=== PATIENT | male | born 1940 | race Caucasian/White ===

== ENCOUNTER 2019-07-26 14:11 | Inpatient (IN) | payer OTHER ==
[2019-07-26] MEDS ORDERED: ONDANSETRON 4 MG/2 ML VIAL ONE (14:19)
[2019-07-26] MEDS ORDERED: ASPIRIN 81 MG CHEWABLE TABLET ONE ×2 (14:19→15:20)
[2019-07-26] MEDS ORDERED: MORPHINE 4 MG/ML SYR ONE (14:26)
[2019-07-26] MEDS ORDERED: HEPA 1000U/500MLS 2,000 UNIT/1,000 ML BAG IV ONE (14:34)
[2019-07-26] MEDS ORDERED: LIDOCAINE 1% MPF 30 ML VIAL ONE (14:35)
--- NOTE | 2019-07-26 14:41 | EDPHYS ---
Physician Documentation [facility] Name: Lamin Damian Jr Age: 79 yrs Sex: Male : 1940 Arrival Date: 07/26/2019 Time: 14:12 Bed 2 Private MD: ED Physician David Diaz HPI: 07/26 14:36 This 79 yrs old Male presents to ER via Ambulatory with complaints of Chest Pain, L Arm ma2 Pain. 14:36 The patient or guardian reports chest pain that is located primarily in the substernal ma2 area. Onset: suddenly, 0.5 hour(s) ago. Associated signs and symptoms: Pertinent negatives: cough, dizziness, lower extremity swelling. Severity of pain: At its worst the pain was severe in the emergency department the pain is unchanged. The patient has not experienced similar symptoms in the past. Historical: - Allergies: 14:26 No Known Allergies; sg - Home Meds: 14:32 two prostate pills [Active]; breathing treatment [Active]; sg - PSHx: 14:26 Appendectomy; sg - Immunization history:: Adult Immunizations up to date. - Social history:: Smoking status: Patient reports use of chewing tobacco. Patient uses alcohol, occasionally. Patient/guardian denies using street drugs, IV drugs, Patient/guardian denies using The patient lives with family. - Ebola Screening: : Patient negative for fever greater than or equal to 101.5 degrees Fahrenheit, and additional compatible Ebola Virus Disease symptoms Patient denies exposure to infectious person Patient denies travel to an Ebola-affected area in the 21 days before illness onset No symptoms or risks identified at this time. - Family history:: not pertinent. ROS: 14:36 Respiratory: Negative for shortness of breath, cough, wheezing, and pleuritic chest ma2 pain, Abdomen/GI: Negative for abdominal pain, nausea, diarrhea, and constipation, MS/Extremity: Negative for injury and deformity. 14:36 All other systems are negative. Exam: 14:36 ENT: Nares patent. No nasal discharge, no septal abnormalities noted. Tympanic ma2 membranes are normal and external auditory canals are clear. Oropharynx with no redness, swelling, or masses, exudates, or evidence of obstruction, uvula midline. Mucous membranes moist. Neck: Trachea midline, no thyromegaly or masses palpated, and no cervical lymphadenopathy. Supple, full range of motion without nuchal rigidity, or vertebral point tenderness. No Meningismus. Chest/axilla: Normal chest wall appearance and motion. Nontender with no deformity. No lesions are appreciated. Cardiovascular: Regular rate and rhythm with a normal S1 and S2. No gallops, murmurs, or rubs. Normal PMI, no JVD. No pulse deficits. Respiratory: Lungs have equal breath sounds bilaterally, clear to auscultation and percussion. No rales, rhonchi or wheezes noted. No increased work of breathing, no retractions or nasal flaring. MS/ Extremity: Pulses equal, no cyanosis. Neurovascular intact. Full, normal range of motion. Neuro: Awake and alert, GCS 15, oriented to person, place, time, and situation. Cranial nerves II-XII grossly intact. Motor strength 5/5 in all extremities. Sensory grossly intact. Cerebellar exam normal. Normal gait. 14:36 Constitutional: The patient appears diaphoretic, in obvious distress. Vital Signs: 14:28 BP 156 / 91; Pulse 66 MON; Resp 21; Temp 97.3; Pulse Ox 96% on R/A; Weight 108.86 kg sg (R); Height 6 ft. 0 in. (182.88 cm); Pain 8/10; 14:28 Body Mass Index 32.55 (108.86 kg, 182.88 cm) MDM: 14:16 Patient medically screened. tw4 14:36 Differential diagnosis: abnormal EKG, acute myocardial infarction, acute pericarditis, ma2 unstable angina. HEART Score: ECG: Significant ST-deviation (2). The patient was given aspirin in the Emergency Department. BLADIMIR Risk Score: 1 - patient's age is greater or equal to 65 years, 1 - ST deviation >0.5mm. Data reviewed: vital signs, nurses notes. Counseling: I had a detailed discussion with the patient and/or guardian regarding: the historical points, exam findings, and any diagnostic results supporting the discharge/admit diagnosis, the presence of at least one elevated blood pressure reading (>120/80) during this emergency department visit, discussed with dr. rhoades, stemi activated, given asa and patient. 07/26 14:30 Order name: Basic Metabolic Panel 07/26 14:30 Order name: CBC with Diff 07/26 14:30 Order name: LFT's 07/26 14:30 Order name: Magnesium 07/26 14:30 Order name: NT PRO-BNP 07/26 14:30 Order name: PT-INR 07/26 14:30 Order name: Troponin (emerg Dept Use Only) 07/26 14:32 Order name: Basic Metabolic Panel 07/26 14:32 Order name: CBC with Diff 07/26 14:32 Order name: LFT's 07/26 14:32 Order name: Magnesium 07/26 14:32 Order name: NT PRO-BNP 07/26 14:32 Order name: PT-INR 07/26 14:32 Order name: Troponin (emerg Dept Use Only) 07/26 14:30 Order name: XRAY Chest (1 view) 07/26 14:30 Order name: EKG; Complete Time: 14:32 07/26 14:30 Order name: Cardiac monitoring; Complete Time: 14:31 07/26 14:30 Order name: EKG - Nurse/Tech; Complete Time: 14:30 07/26 14:30 Order name: IV Saline Lock; Complete Time: 14:31 07/26 14:30 Order name: Labs collected and sent; Complete Time: 14:31 07/26 14:30 Order name: O2 Per Protocol; Complete Time: 14:31 07/26 14:30 Order name: O2 Sat Monitoring; Complete Time: 14:31 07/26 14:32 Order name: XRAY Chest (1 view) 07/26 14:32 Order name: Cardiac monitoring; Complete Time: 14:35 07/26 14:32 Order name: EKG - Nurse/Tech; Complete Time: 14:41 07/26 14:32 Order name: IV Saline Lock; Complete Time: 14:35 07/26 14:32 Order name: Labs collected and sent; Complete Time: 14:35 07/26 14:32 Order name: O2 Per Protocol; Complete Time: 14:35 07/26 14:32 Order name: O2 Sat Monitoring; Complete Time: 14:36 tw4 Administered Medications: 14:18 Drug: Zofran 4 mg Route: IVP; Site: right forearm; sg 14:41 Follow up: Response: No adverse reaction sv 14:26 Drug: morphine 4 mg Route: IVP; Site: right forearm; 14:41 Follow up: Response: No adverse reaction; No change in condition; RASS: Agitated (+2) sv 14:45 Drug: transfer to senior label specialist 1 application Route: IV; Rate: calculated rate; Site: Other; Disposition: 14:46 Critical Care:. ma2 Disposition: 07/26/19 14:39 Hospitalization ordered by Harry Rhoades for Inpatient Admission. Preliminary diagnosis is ST elevation (STEMI) myocardial infarction involving other coronary artery of inferior wall. - Bed requested for Intensive Care Unit. - Status is Inpatient Admission. sv - Condition is Critical. - Problem is new. - Symptoms are unchanged. UTI on Admission? No Critical care time excluding procedures: 14:46 Critical care time: Bedside Care: 30 minutes, Consultation: 10 minutes, Family ma2 Intervention: 5 minutes. Total time: 45 minutes Signatures: Dispatcher [employer] Anna Valdivia RN RN Franky Cole RN RN David Diaz MD MD ma2 Iván Anderson MD MD tw4 Corrections: (The following items were deleted from the chart) 14:44 14:39 Hospitalization Ordered by Harry Rhoades MD for Inpatient Admission. Preliminary sv diagnosis is ST elevation (STEMI) myocardial infarction involving other coronary artery of inferior wall. Bed requested for Intensive Care Unit. Status is Inpatient Admission. Condition is Critical. Problem is new. Symptoms are unchanged. UTI on Admission? No. ma2
--- NOTE | 2019-07-26 14:41 | ER ---
Nurse's Notes [facility] Name: Lamin Damian Jr Age: 79 yrs Sex: Male : 1940 Arrival Date: 07/26/2019 Time: 14:12 Bed 2 Private MD: Diagnosis: ST elevation (STEMI) myocardial infarction involving other coronary artery of inferior wall Presentation: 07/26 14:25 Acuity: SMOOTH 1 sg 14:27 Presenting complaint: Patient states: chest pain that radiates to the left arm about 30 sg mins MEDIA CONSULTANT, reports N/V that started at the same time, pt states that he has had no problems with his heart in the past. Transition of care: patient was not received from another setting of care. Onset of symptoms was July 26, 2019. Risk Assessment: Do you want to hurt yourself or someone else? Patient reports no desire to harm self or others. Initial Sepsis Screen: Does the patient meet any 2 criteria? RR > 20 per min. Does the patient have a suspected source of infection? No. Patient's initial sepsis screen is negative. Care prior to arrival: None. 14:27 Method Of Arrival: Ambulatory sg Historical: - Allergies: 14:26 No Known Allergies; sg - Home Meds: 14:32 two prostate pills [Active]; breathing treatment [Active]; sg - PSHx: 14:26 Appendectomy; sg - Immunization history:: Adult Immunizations up to date. - Social history:: Smoking status: Patient reports use of chewing tobacco. Patient uses alcohol, occasionally. Patient/guardian denies using street drugs, IV drugs, Patient/guardian denies using The patient lives with family. - Ebola Screening: : Patient negative for fever greater than or equal to 101.5 degrees Fahrenheit, and additional compatible Ebola Virus Disease symptoms Patient denies exposure to infectious person Patient denies travel to an Ebola-affected area in the 21 days before illness onset No symptoms or risks identified at this time. - Family history:: not pertinent. Screenin:20 Abuse screen: Denies threats or abuse. Denies injuries from another. Nutritional sg screening: No deficits noted. Tuberculosis screening: No symptoms or risk factors identified. Never had TB. Fall Risk None identified. Assessment: 14:20 General: Appears distressed, uncomfortable, well groomed, well developed, well sg nourished, Behavior is calm, cooperative, appropriate for age. Pain: Complains of pain in anterior aspect of left upper chest Pain radiates to left arm Quality of pain is described as aching. Neuro: Level of Consciousness is awake, alert, obeys commands, Oriented to person, place, time, Toolmaker are equal bilaterally Speech is normal, Cardiovascular: Heart tones S1 S2 present. Cardiovascular: Capillary refill is brisk in bilateral fingers Chest pain is described as diffuse, severe, quality is crushing, pressure, is located in anterior chest wall radiates to left arm(s). Respiratory: Airway is patent Respiratory effort is even, unlabored, Respiratory pattern is regular, symmetrical, Breath sounds are clear Denies cough. GI: Abdomen is round non-distended, Bowel sounds present X 4 quads. Reports nausea, vomiting. : No signs and/or symptoms were reported regarding the genitourinary system. EENT: No signs and/or symptoms were reported regarding the EENT system. Derm: Skin is intact, is healthy with good turgor, Skin is clammy, Skin is pale, Skin temperature is warm. Musculoskeletal: Circulation, motion, and sensation intact. Range of motion: intact in all extremities. 14:35 Reassessment: Dr Rhoades at the bedside. sv 14:35 Reassessment: Patient appears in no apparent distress at this time. at bedside at this time. Vital Signs: 14:28 BP 156 / 91; Pulse 66 MON; Resp 21; Temp 97.3; Pulse Ox 96% on R/A; Weight 108.86 kg (R); Height 6 ft. 0 in. (182.88 cm); Pain 8/10; 14:28 Body Mass Index 32.55 (108.86 kg, 182.88 cm) ED Course: 14:12 Patient arrived in ED. ds1 14:15 Patient has correct armband on for positive identification. Placed in gown. Bed in low sv position. Call light in reach. Side rails up X2. Adult w/ patient. venetian blind mechanic on. Pulse ox on. NIBP on. Head of bed elevated. 14:16 Iván Anderson MD is Attending Physician. tw4 14:20 Initial lab(s) drawn, by me, sent to lab. Inserted saline lock: 20 gauge in right sg forearm, using aseptic technique. Blood collected. Patient maintains SpO2 saturation greater than 95% on room air. O2 via pt placed to 4 lpm NC as per protocol. 14:22 Missed attempt(s): 20 gauge in left forearm. antecubital area. Bleeding controlled, sv band aid applied, catheter tip intact. 14:25 Franky Cole, RN is Primary Nurse. sg 14:25 Triage completed. sg 14:25 Arm band placed on. sg 14:25 Inserted saline lock: 20 gauge in left hand, using aseptic technique. ,using aseptic sv technique. done by Rossana ANTON. 14:39 Harry Rhoades MD is Hospitalizing Provider. ma 14:39 David Diaz MD is Attending Physician. ma 14:40 No provider procedures requiring assistance completed. Patient admitted, IV remains in sv place. intact. Administered Medications: 14:18 Drug: Zofran 4 mg Route: IVP; Site: right forearm; sg 14:41 Follow up: Response: No adverse reaction sv 14:26 Drug: morphine 4 mg Route: IVP; Site: right forearm; sg 14:41 Follow up: Response: No adverse reaction; No change in condition; RASS: Agitated (+2) sv 14:45 Drug: transfer to laborer vegetable farm 1 application Route: IV; Rate: calculated rate; Site: Other; Outcome: 14:39 Decision to Hospitalize by Provider. ma2 14:40 Admitted to Lens Mold Setter accompanied by nurse, accompanied by tech, family with patient, sv via stretcher, with oxygen, on monitor, with chart, Report called to Neida, at the bedside 14:40 critical 14:40 Instructed on the need for admit. 14:44 Patient left the ED. sv Signatures: Anna Potter RN RN Franky Cole, DESEAN ANTON Yenni Escobedo ds1 David Diaz MD MD ma2 Iván Anderson MD MD tw4
[2019-07-26 14:43] LABS: Absolute Lymphocytes (CBC) 1.4 K/uL (0.7-4.9); Basophils % 0.9 % (0-1.3); Hematocrit 53.2 % (39.6-49.0); Lymphocytes % 19.4 % (15.3-44.8); MPV 8.4 fL (7.6-11.3); RBC Red Blood Cell Count 5.98 M/uL (4.33-5.43)
--- NOTE | 2019-07-26 14:51 | EKG ---
Test Date: 2019-07-26 Test Time: 14:20:15 Senior Controls Engineer: SELENE MEASUREMENT RESULTS: Intervals: Rate: 57 NE: 164 QRSD: 100 QT: 386 QTc: 375 [place]: P: 45 NE: 164 QRS: 38 T: 77 INTERPRETIVE STATEMENTS: Sinus bradycardia ST elevation, consider anterolateral injury or acute infarct ST elevation, consider inferior injury or acute infarct ACUTE [place] Consider right ventricular involvement in acute inferior infarct Abnormal ECG No previous ECG available for comparison Electronically Signed On 07-26-19 14:51:05 STABLE HAND by Harry Rhoades
[2019-07-26 14:53] LABS: Protime INR 0.96
[2019-07-26] MEDS ORDERED: MIDAZOLAM HCL 2 MG/2 ML INJ ONE (14:54)
[2019-07-26] MEDS ORDERED: NA CHLORIDE 0.9% 500 ML ONE (14:54)
[2019-07-26] MEDS ORDERED: ATROPINE SULF 1 MG/10 ML SYR IV ONE (14:55)
[2019-07-26] MEDS ORDERED: NA CHLORIDE 0.9% 50 ML ONE (14:55)
[2019-07-26] MEDS ORDERED: FENTANYL CITR 100 MCG/2 ML ONE (14:55)
--- NOTE | 2019-07-26 15:04 | RAD REPORT ---
EXAM DESCRIPTION: Treasure Single View07/26/2019 2:56 pm CLINICAL HISTORY: Chest pain COMPARISON: none FINDINGS: Left base is hazy The right lung appears clear of acute infiltrate. The heart is normal size IMPRESSION: The left base is hazy. This could be secondary to overlying soft tissue or small pleural effusion.
[2019-07-26 15:05] LABS: ALT/SGPT 37 U/L (12-78); AST/SGOT 23 U/L (15-37); Albumin 3.8 g/dL (3.4-5.0); Alkaline Phosphatase 59 U/L (45-117); BUN Blood Urea Nitrogen 16 mg/dL (7-18); Bicarbonate 29 mmol/L (21-32); Bilirubin Direct 0.2 mg/dL (0-0.2); Bilirubin Total 0.7 mg/dL (0.2-1.0); Glucose Level 135 mg/dL (74-106); Magnesium 2.2 mg/dL (1.8-2.4); NT PRO-BNP 83 pg/mL (<450); Potassium 3.9 mmol/L (3.5-5.1); Protein, Total 7.3 g/dL (6.4-8.2); Sodium Level 141 mmol/L (136-145); Troponin (Emerg Dept Use Only) < 0.02 ng/mL (0.0-0.045)
[2019-07-26] MEDS ORDERED: PRASUGREL (EFFIENT) 10 MG TAB ONE (15:20)
[2019-07-26] MEDS ORDERED: METOPROLOL TARTRATE 5 MG/5 ML INJ IV ONE ×2 (15:23→16:10)
[2019-07-26] MEDS ORDERED: ZOLPIDEM TARTRATE 5 MG TABLET PO PRN (15:52)
[2019-07-26] MEDS ORDERED: ONDANSETRON 4 MG/2 ML VIAL IV PRN (15:52)
[2019-07-26] MEDS ORDERED: FENTANYL CITR 100 MCG/2 ML IV PRN (15:52)
[2019-07-26] MEDS ORDERED: HYDRALAZINE HCL 20 MG/ML VIAL ONE (16:10)
--- NOTE | 2019-07-26 16:19 | ECHO ---
HEIGHT: 6 ft 0 in WEIGHT: 240 lb 0 oz DATE OF STUDY: 07/26/[address]: Harry Rhoades MD 2-DIMENSIONAL: YES M.MODE: YES DOPPLER: YES COLOR FLOW: YES TDS: NO PORTABLE: NO DEFINITY: NO BUBBLE STUDY: NO DIAGNOSIS: NSTEMI CARDIAC HISTORY: CATHERIZATION: YES SURGERY: NO PROSTHETIC VALVE: NO PACEMAKER: NO MEASUREMENTS (cm) DIASTOLIC (NORMALS) SYSTOLIC (NORMALS) IVSd (0.6-1.2) LA Diam (1.9-4.0) LVEF 60-69% LVIDd (3.5-5.7) LVIDs (2.0-3.5) %FS % LVPWd (0.6-1.2) Ao Diam (2.0-3.7) 2 DIMENSIONAL ASSESSMENT: RIGHT ATRIUM: NORMAL LEFT ATRIUM: DILATED RIGHT VENTRICLE: NORMAL LEFT VENTRICLE: NORMAL TRICUSPID VALVE: NORMAL MITRAL VALVE: NORMAL PULMONIC VALVE: NORMAL AORTIC VALVE: SCLEROSIS PERICARDIAL EFFUSION: NONE AORTIC ROOT: NORMAL LEFT VENTRICULAR WALL MOTION: MILD INFERIOR HYPOKINESIS. DOPPLER/COLOR FLOW: NO AORTIC STENOSIS OR AORTIC REGURGITATION. MILD TRICUSPID REGURGITATION, ESTIMATED RIGHT VENTRICULAR SYSTOLIC PRESSURE 30mmHg (NORMAL). COMMENTS: NORMAL LEFT VENTRICULAR EJECTION FRACTION WITH WALL MOTION ABNORMALITY. DILATED LEFT ATRIUM. AORTIC SCLEROSIS WITH NO AORTIC STENOSIS OR REGURGITATION. MILD MITRAL AND MILDL TRICUSPID REGURGITATION. TECHNOLOGIST: GAIL ALVAREZ
--- NOTE | 2019-07-26 16:36 | EKG ---
Test Date: 2019-07-26 Test Time: 15:49:34 Senior Statistician: DORIE MEASUREMENT RESULTS: Intervals: Rate: 74 NH: 178 QRSD: 94 QT: 376 QTc: 417 [place]: P: 78 NH: 178 QRS: 14 T: 83 INTERPRETIVE STATEMENTS: Normal sinus rhythm Inferior infarct, possibly acute Lateral injury pattern ACUTE MS Consider right ventricular involvement in acute inferior infarct Abnormal ECG Compared to ECG 07/26/2019 14:20:15 Sinus bradycardia no longer present st depression is imporved Electronically Signed On 07-26-19 16:35:53 FLAP CURER by Harry Rhoades
[2019-07-26] MEDS ORDERED: ACETAMINOPHEN 325 MG TABLET PO PRN (17:46)
[2019-07-26] MEDS ORDERED: NITROGLYCERIN 0.4 MG/TAB SL PRN (17:47)
[2019-07-26] MEDS: NA CHLORIDE 0.9% 1,000 ML IV SCH ×2 (18:00→19:23)
[2019-07-26 18:17] VITALS: BMI 32.8
--- NOTE | 2019-07-26 19:08 | CON ---
Identification: Mr. Damian is 79. Chief Complaint: Chest pain. History Of Present Illness: Mr. Damian has been feeling fine until earlier in the day today when he started to have chest pain. His insisted he come to the hospital and it is clear he is having a n acute inferior DC. Marked ST elevation is seen in the inferior leads. The patient has no previous history of myocardial infarction or stroke. No history of diabetes. He is allergic to diphtheria a nd tetanus toxoid, allergic to TB skin test. Apparently, he does not have dyslipidemia or diabetes. Allergies: NO ALLERGIES ARE KNOWN. Medications: List of medicines is not available. Social History: No tobacco use. Physical Examination: General: He is alert. He is in distress, uncomfortable. He is obese. Lungs: Clear. Heart: Reveals a regular rate and rhythm. Laboratory Data: EKG reveals marked inferior ST elevation and acute inferior injury pattern. Plan: The plan is to take him to cardiac cath, probably a stent and we will proceed from there. YOSEF/REID Voice ID: [id number] Report ID: [id number]
--- NOTE | 2019-07-26 20:53 | OP ---
Surgeon: Harry Rhoades MD Procedures: Left heart catheterization, coronary angiography, percutaneous coronary intervention of a totally occluded right coronary artery, the infarct vessel, percutaneous coronary intervention sten t of the proximal LAD. Both stents were successful. No LV gram was done. Procedure Findings: The patient had a totally occluded mid right coronary artery. After opening wit h a balloon, there was a ragged 50% lesion. After stenting, there was 0% residual stenosis. In the proximal LAD was a 70% to 80% smooth stenosis before branches and it was primarily stented and after stenting, there was 0% residual stenosis. Procedure In Detail: The patient was having an acute inferior SC probably about 4 hours from onset o f symptoms about [id number] time was probably less than 60 minutes. The patient was brought to the cardiac operations label clerk. His stomach had to be empty. He was sedated with Versed and fentanyl, prepare d and draped. Right femoral approach was used. We entered the artery using an 18-gauge needle, trenton ulated the artery with a short J-wire and placed a 6-Mongolian sheath. We flushed the sheath. He was g iven Angiomax. Activated clotting time demonstrated over 400 seconds. He was also given 60 mg of Ef fient, 81 mg of aspirin p.o. A 6-Mongolian JL4 was used to angiogram the left coronary, a 6-Mongolian 3DRC to angiogram the right, a 6-Mongolian 3DRC with side holes guide catheter was used to cannulate the rig ht coronary ostium. The lesion was crossed with a Estela wire, pre-dilated with a 3.0 x 15 Emerge ba lloon. We then stented with a 3.5 x 20 stent. This gave an excellent angiographic result. It was i nflated to 16 atmospheres. Orthogonal pictures were taken with the wire out. We then turned our att ention to the proximal LAD lesion, we engaged the left main ostium with an XB LAD 3.5 with side holes , crossed the lesion with a Renner wire and did not pre-dilate, but we stented with a 3.5 x 16 Synerg y stent inflated to 16 atmospheres. Excellent angiographic result in orthogonal views. At the end o f the procedure, catheters and wires were withdrawn. A sheath shot was done, sheath entered fairly c lose to the bifurcation of the common femoral into the profunda and superficial femoral arteries. We used a StarClose to close the case. StarClose will be deployed when the activated clotting time is less than 200 seconds. Complications From The Procedure: None. Estimated Blood Loss: 15 mL. Solo Musician: Shereen Jaimes. YOSEF/REID Voice ID: [id number] Report ID: [id number]
[2019-07-26] MEDS: METOPROLOL TAR 50 MG TAB PO SCH (20:57)
[2019-07-26] MEDS ORDERED: ATORVASTATIN 80 MG TAB PO SCH (21:00)
[2019-07-27] MEDS ORDERED: DOCUSATE NA 100 MG CAP PO PRN (05:27)
[2019-07-27 06:27] LABS: Hematocrit 50.3 % (39.6-49.0); MPV 8.5 fL (7.6-11.3); RBC Red Blood Cell Count 5.61 M/uL (4.33-5.43)
[2019-07-27 06:36] LABS: Potassium 4.1 mmol/L (3.5-5.1)
[2019-07-27 06:38] LABS: Troponin I 38.7 ng/mL (0.0-0.045)
--- NOTE | 2019-07-27 06:56 | P.CNS ---
Date of Consult: 07/27/19 Reason for Consult: internal medicine evaluation Chief Complaint: STEMI History of Present Illness: Lamin Damian is a 79M w/ pmhx of BPH and arthritis who presents w/ chest pain and found to have STEMI undergoing cardiac catheterization w/ stent placement. He describes the events of the day of admission as going to lunch with friends and his , after lunch he states feeling indegestion and a need to defecate. he and his later left but he noted feeling left arm pain followed by a chest pressure, nausea and then vomiting. he and his w/ some medical expertise determined that he was likely having a heart attack and instead of waiting for an ambulance that would have taken > 1 hour due to their location his drove him to the ER. he was found to have an inferior STEMI and cath laboratory technician was activated, admitted to cardiology service with determination for stent placement. he currently states that he feels fine and would like to go home if possible. IM was consulted for intervention on further medical necessity. he denies tobacco or drug use. he states one beer per night. he denies fever, chills, sob, orthopnea, pnd, dyspnea, n/v/baker, dizziness, le swelling, confusion, cough. Allergies tetanus and diphtheria toxoids Allergy (Verified 07/26/19 14:41) Hives/Rash Home Medications: Atorvastatin Calcium [Lipitor] 80 mg PO BEDTIME #30 tab 07/27/19 Clopidogrel Bisulfate [Plavix*] 75 mg PO DAILY #30 tablet 07/27/19 Losartan Potassium [Cozaar*] 50 mg PO DAILY #30 tablet 07/27/19 Metoprolol Tartrate [Lopressor*] 50 mg PO BID #60 tab 07/27/19 - Past Medical/Surgical History Diabetic: No -: BPH -: COPD -: Appendectomy -: Right Shoulder Surgery - Family History Father Medical History: Kidney disease Mother Medical History: Heart disease, GI disease Sister Medical History: Cancer - Social History Alcohol use: Yes CD- Drugs: No Caffeine use: No Place of Residence: Home Review of Systems General: Unremarkable Eyes: Unremarkable ENT: Unremarkable Respiratory: As per HPI, Unremarkable Cardiovascular: As per HPI, Unremarkable Gastrointestinal: As per HPI, Unremarkable Genitourinary: Unremarkable Musculoskeletal: Unremarkable Integumentary: Unremarkable Neurological: Unremarkable Physical Examination Temp Pulse Resp BP Pulse Ox 98.5 F 59 16 134/76 95 07/27/19 04:00 07/27/19 04:00 07/27/19 04:00 07/27/19 04:00 07/27/19 04:00 General: In no apparent distress, Oriented x3, Cooperative HEENT: Atraumatic, Normocephalic Neck: Supple Respiratory: Clear to auscultation bilaterally, Normal air movement Cardiovascular: No edema, Normal pulses, Regular rate/rhythm Capillary refill: <2 Seconds Gastrointestinal: Normal bowel sounds, Soft and benign, Non-distended, No tenderness, No rebound, No guarding Musculoskeletal: No swelling Neurological: Normal speech, Other (gait not tested) External genitalia: Deferred Rectal: Deferred Laboratory Data (last 24 hrs) 07/26/19 14:32: PT Cancelled, INR Cancelled 07/26/19 14:32: WBC Cancelled, Hgb Cancelled, Hct Cancelled, Plt Count Cancelled 07/26/19 14:32: Sodium Cancelled, Potassium Cancelled, BUN Cancelled, Creatinine Cancelled, Glucose Cancelled, Magnesium Cancelled, Total Bilirubin Cancelled, AST Cancelled, ALT Cancelled, Alkaline Phosphatase Cancelled 07/26/19 14:25: PT 11.4, INR 0.96 07/26/19 14:25: WBC 7.0, Hgb 17.7, Hct 53.2 H, Plt Count 201 07/26/19 14:25: Sodium 141, Potassium 3.9, BUN 16, Creatinine 1.29, Glucose 135 H, Magnesium 2.2, Total Bilirubin 0.7, AST 23, ALT 37, Alkaline Phosphatase 59 Conclusions/Impression: 79yoM admitted w/ STEMI -admitted to cardiology w/ stent placement. started on ACEI, BB, ASA, plavix and a statin IM was consulted for medical necessity w/ plan to obtain daily labs f/u with cardio plan and consider need for home health or PT
[2019-07-27 07:44] LABS: Thyroid Stimulating Hormone 1.98 uIU/mL (0.360-3.740)
[2019-07-27] MEDS: METOPROLOL TAR 50 MG TAB PO SCH (08:12)
[2019-07-27] MEDS ORDERED: ASPIRIN EC 81 MG TAB PO SCH (09:00)
[2019-07-27] MEDS ORDERED: LOSARTAN POTASSIUM 50 MG TABLET PO SCH (09:00)
[2019-07-27] MEDS ORDERED: CLOPIDOGREL 75 MG TABLET PO SCH (09:00)
--- NOTE | 2019-07-27 09:15 | PN ---
Subjective: Mr. Damian has had no issues overnight. Hemoglobin, hematocrit, and all the issues in t he basic metabolic panel are normal. His groin looks good. Not having chest pain. His troponin has gone up to 38, indicating a rather small infarction. Echocardiogram revealed mild inferior hypokine sis. So, it looks like he has had a very good outcome from a percutaneous coronary intervention for acute inferior CO. He is stable to be discharged today, taking metoprolol 50 b.i.d., losartan 50 mg per day, aspirin 81 mg per day, Plavix 75 mg per day, and Lipitor 80 mg per day. Impression: Patient is expected to call my office, so we can schedule a followup in about 2 weeks. He gets a lot of his followup at the [facility]. His prescriptions have been sent to the [facility]. Please inform his of this. OLU Voice ID: [id number] Report ID: [id number]
[2019-07-27 09:53] VITALS: BP 121/72; TEMP 97.9
[2019-07-27 10:18] VITALS: O2SAT 95
--- NOTE | 2019-07-27 16:50 | P.DS ---
Admission Date: 07/26/19 Discharge Date: 07/27/19 Primary Care Provider: unknown Disposition: ROUTINE DISCHARGE Discharge Condition: GOOD Reason for Admission: STEMI Consultations: Cardiology-Dr. Rhoades Procedures: Heart catheterization: Surgeon: Harry Rhoades MD Procedures: Left heart catheterization, coronary angiography, percutaneous coronary intervention of a totally occluded right coronary artery and stenosis to the proximal LAD. Status post stents Procedure Findings: The patient had a totally occluded mid right coronary artery. After opening with a balloon, there was a ragged 50% lesion. After stenting, there was 0% residual stenosis. In the proximal LAD was a 70% to 80% smooth stenosis before branches and it was primarily stented and after stenting , there was 0% residual stenosis. Echocardiogram: Ejection fraction 60% LEFT VENTRICULAR WALL MOTION: MILD INFERIOR HYPOKINESIS. DOPPLER/COLOR FLOW: NO AORTIC STENOSIS OR AORTIC REGURGITATION. MILD TRICUSPID REGURGITATION, ESTIMATED RIGHT VENTRICULAR SYSTOLIC PRESSURE 30mmHg ( NORMAL). COMMENTS: NORMAL LEFT VENTRICULAR EJECTION FRACTION WITH WALL MOTION ABNORMALITY. DILATED LEFT ATRIUM. AORTIC SCLEROSIS WITH NO AORTIC STENOSIS OR REGURGITATION. MILD MITRAL AND MILDL TRICUSPID REGURGITATION. Medical problem list: Chest pain secondary to STEMI status post heart catheterization showing totally occluded right coronary artery and stenosis to the proximal LAD with successful stents to both arteries Hypertension Hyperlipidemia Brief History of Present Illness: 79-year-old male presented to the emergency room with chest pain. Patient found to have NSTEMI. Patient was admitted for emergent heart catheterization. Hospital Course: Patient presented with chest pain Patient found to have STEMI. Cardiology was consulted. Emergent heart catheterization was performed. Patient found to have totally occluded right Coronary artery and stenosis to the proximal LAD. Stents were placed to both arteries with success. Patient has done well post heart catheterization. At discharge patient will continue with Plavix 75 mg daily, Lipitor 80 mg daily, losartan 50 mg daily, and metoprolol 50 mg 1 pill twice daily. Patient will follow up with cardiology in 1-2 weeks to follow up this hospitalization. As mentioned above patient with history of hyperlipidemia and hypertension. Patient will continue with Lipitor 80 mg daily, losartan 50 mg daily and metoprolol 50 mg 1 pill twice daily. Vital Signs/Physical Exam: Temp Pulse Resp BP Pulse Ox 97.9 F 75 18 121/72 95 07/27/19 08:00 07/27/19 08:12 07/27/19 08:00 07/27/19 08:00 07/27/19 08:00 General: Alert, In no apparent distress HEENT: Atraumatic Neck: Supple Respiratory: Clear to auscultation bilaterally, Normal air movement Cardiovascular: Normal pulses, Regular rate/rhythm Gastrointestinal: Normal bowel sounds, Soft and benign, Non-distended Neurological: Normal speech, Normal strength at 5/5 x4 extr, Normal tone Laboratory Data at Discharge: WBC 10.9 K/uL (4.3-10.9) D 07/27/19 05:59 Hgb 16.7 g/dL (13.6-17.9) 07/27/19 05:59 Hct 50.3 % (39.6-49.0) H 07/27/19 05:59 Plt Count 200 K/uL (152-406) 07/27/19 05:59 PT 11.4 SECONDS (9.5-12.5) 07/26/19 14:25 INR 0.96 07/26/19 14:25 Sodium 140 mmol/L (136-145) 07/27/19 05:59 Potassium 4.1 mmol/L (3.5-5.1) 07/27/19 05:59 BUN 15 mg/dL (7-18) 07/27/19 05:59 Creatinine 0.99 mg/dL (0.55-1.3) 07/27/19 05:59 Glucose 108 mg/dL (74-106) H 07/27/19 05:59 Magnesium 2.2 mg/dL (1.8-2.4) 07/26/19 14:25 Total Bilirubin 0.7 mg/dL (0.2-1.0) 07/26/19 14:25 AST 23 U/L (15-37) 07/26/19 14:25 ALT 37 U/L (12-78) 07/26/19 14:25 Alkaline Phosphatase 59 U/L (45-117) 07/26/19 14:25 Troponin I 38.70 ng/mL (0.0-0.045) H* 07/27/19 05:59 Triglycerides 142 mg/dL (<150) 07/27/19 05:59 Cholesterol 191 mg/dL (<200) 07/27/19 05:59 HDL Cholesterol 56 mg/dL (40-60) 07/27/19 05:59 Cholesterol/HDL Ratio 3.41 07/27/19 05:59 Home Medications: Atorvastatin Calcium [Lipitor] 80 mg PO BEDTIME #30 tab 07/27/19 Clopidogrel Bisulfate [Plavix*] 75 mg PO DAILY #30 tablet 07/27/19 Losartan Potassium [Cozaar*] 50 mg PO DAILY #30 tablet 07/27/19 Metoprolol Tartrate [Lopressor*] 50 mg PO BID #60 tab 07/27/19 New Medications: Atorvastatin Calcium [Lipitor] 80 mg PO BEDTIME #30 tab Clopidogrel Bisulfate [Plavix*] 75 mg PO DAILY #30 tablet Losartan Potassium [Cozaar*] 50 mg PO DAILY #30 tablet Metoprolol Tartrate [Lopressor*] 50 mg PO BID #60 tab Patient Discharge Instructions: 1. Patient will follow up with cardiology in 1- 2 weeks to follow up this hospitalization. 2. Patient status post heart catheterization with stents to the right Coronary artery and proximal LAD. Patient will continue with Plavix, Lipitor, losartan and metoprolol. Diet: AHA Activity: Ad joseph Followup: Harry Rhoades MD [ACTIVE - CAN ADMIT] - Time spent managing pt's care (in minutes): 55
== END 2019-07-27 09:24 | disposition home or self-care (01) | DRG 247 ==
LOC: ER 14:11 → ERHOLD 14:47 → 3RD-ICU 15:16 → 2ND 23:30
PROVIDERS: ADMIT Internal Medicine; ATTEND Internal Medicine
PROC: 027135Z Dilation of Coronary Artery, Two Arteries with Two Drug-eluting Intraluminal Devices, Percutaneous Approach (ICD-10-PCS; principal; 2019-07-26)
PROC: 4A023N7 Measurement of Cardiac Sampling and Pressure, Left Heart, Percutaneous Approach (ICD-10-PCS; 2019-07-26)
PROC: B201YZZ Plain Radiography of Multiple Coronary Arteries using Other Contrast (ICD-10-PCS; 2019-07-26)
PROC: B205YZZ Plain Radiography of Left Heart using Other Contrast (ICD-10-PCS; 2019-07-26)
DX: I21.19 ST elevation (STEMI) myocardial infarction involving other coronary artery of inferior wall (principal); I10 Essential (primary) hypertension; E78.5 Hyperlipidemia, unspecified; Z88.7 Allergy status to serum and vaccine
CPT/HCPCS: 36415; 71045; 80048; 80061; 80076; 83036; 83735; 83880; 84443; 84484; 85025; 85027; 85347; 85610; 93005; 93306; 93454; 96374; 96375; 99285; C1725; C1893; C9600; C9601; J0360; J0583; J2250; J2405; J3010; J7030; J7040

== ENCOUNTER 2023-01-03 12:30 | Emergency (ER) | payer OTHER ==
--- OUTSIDE RECORDS SUMMARY | 2023-01-03 12:33 | XMS REPORT | Continuity of Care Document ---
:1940 Author Organization [facility] Address [address] [place] [address] Care Team Providers Name Role Phone MARGARET Attending Clinician Unavailable Sesar_Aubree Attending Clinician Unavailable MARGARET Admitting Clinician Unavailable Janiu_Aubree Admitting Clinician Unavailable Problems This patient has no known problems. Allergies, Adverse Reactions, Alerts This patient has no known allergies or adverse reactions. Medications This patient has no known medications. Procedures This patient has no known procedures. Encounters Start End Encounter Admission Attending Care Care Encounter Source Date/Time Date/Time Type Type Clinicians Facility Department ID 2022-01-31 2022-01-31 Outpatient ELIZABETH BELTRE [facility] [id number] [place] 00:00:00 00:00:00 _ANN [id number] da [facility] Program 2019-11-03 2019-11-03 Outpatient [facility]ue [facility] [id number] [place] 10:20:00 10:20:00 [id number] [facility] Results This patient has no known results.
[2023-01-03] MEDS ORDERED: NA CHLORIDE 0.9% 500 ML ONE (13:07)
--- NOTE | 2023-01-03 13:34 | RAD REPORT ---
EXAM DESCRIPTION: CT - Head C Spine Cap Vinicio Con - 01/03/2023 1:10 pm CLINICAL HISTORY: Head and neck injury with chest and abdominal pain status post fall TECHNIQUE: Computed axial tomography of head, neck, chest, abdomen and pelvis obtained. IV and oral contrast not requested. Coronal and sagittal reconstruction performed. All CT scans are performed using dose optimization technique as appropriate and may include automated exposure control or mA/KV adjustment according to patient size. COMPARISON: None FINDINGS: An intracranial bleed is not seen. The ventricles are normal in caliber. An extra-axial fluid collection is not noted. . Fluid within the sinuses/mastoids is not seen. A cervical fracture is not seen. No dislocation is noted. Mild anterior subluxation C2 on C3. Slight anterior subluxation C3 on C4. Mild posterior subluxation C4 on C5. Slight posterior subluxation C5 o n C6. Slight anterior subluxation C6 on C7. The evaluation of mediastinum, razia, vessels, solid organs and bowel are limited secondary to the lac k of contrast administration. Some images are degraded by patient motion artifact A mediastinal hematoma is not noted. A pleural effusion is not seen. A lung contusion is not present. The liver,spleen, pancreas, adrenals,kidneys and bladder do not demonstrate an acute traumatic injury Fractures involve right transverse process of L3 and L4. Moderate compression deformity L2 vertebral body probably chronic Small inguinal hernias Cystic left renal masses. Small hiatal hernia IMPRESSION: No acute intracranial abnormality is seen. A cervical fracture is not visualized. Mild subluxation involves multiple cervical vertebra. These probably are chronic findings. If the patient continues have symptoms to suggest intracranial/spinal cord/ligamentous pathology MRI would be recommended No acute traumatic abnormality involving the chest/abdomen Fractures involve the right transverse processes of L3 and L4. They have a more chronic than acute ap pearance. This should be correlated clinically Cystic left renal masses probably benign. However, a nonemergent renal ultrasound is recommended
[2023-01-03 13:47] LABS: Lymphocytes % 10.1 % (15.3-44.8); MPV 7.8 fL (7.6-11.3)
--- NOTE | 2023-01-03 13:51 | RAD REPORT ---
EXAM DESCRIPTION: RAD - Pelvis - 01/03/2023 1:38 pm CLINICAL HISTORY: Pelvic pain status post injury FINDINGS: No fracture or dislocation is seen. Osteoporosis
[2023-01-03 14:02] LABS: Albumin 3.4 g/dL (3.4-5.0); Bilirubin Total 0.9 mg/dL (0.2-1.0); Potassium 4.2 mEq/L (3.5-5.1); Protein, Total 6.6 g/dL (6.4-8.2)
[2023-01-03 14:06] LABS: Specific Gravity 1.029 (1.005-1.030); Urine Bacteria None Seen /HPF (<20); Urine Bilirubin NEGATIVE (Negative); Urine Blood Negative (Negative); Urine Clarity Clear (Clear); Urine Color Yellow (Yellow); Urine Glucose NEGATIVE (Negative); Urine Mucus 1+ /HPF (None Seen); Urine Protein TRACE (Negative); Urine RBC <5 /HPF (None Seen); Urine Urobilinogen Normal (Normal); Urine pH 5.5 (5.0-7.0)
--- NOTE | 2023-01-03 14:33 | ER ---
Nurse's Notes [facility] Name: Lamin Damian Jr Age: 82 yrs Sex: Male : 1940 Arrival Date: 01/03/2023 Time: 12:30 Bed 7 Private MD: Diagnosis: Fall on same level, unspecified;Repeated falls;Fracture of lumbar vertebra-SUBACUTE Lumbar fractures L3 AND L 4 Presentation: 01/03 12:47 Chief complaint: Patient states: fell from standing a week ago. Pt c/o bilateral hip ss and leg pain since then. Coronavirus screen: Client denies travel out of the [place] in the last 14 days. Ebola Screen: Patient denies exposure to infectious person. Patient denies travel to an Ebola-affected area in the 21 days before illness onset. Initial Sepsis Screen: Does the patient meet any 2 criteria? No. Patient's initial sepsis screen is negative. Does the patient have a suspected source of infection? No. Patient's initial sepsis screen is negative. Risk Assessment: Do you want to hurt yourself or someone else? Patient reports no desire to harm self or others. Onset of symptoms was December 27, 2022. 12:47 Method Of Arrival: Ambulatory ss 12:47 Acuity: SMOOTH 3 ss Historical: - Allergies: 12:48 Tetanus Vaccines \T\ Toxoid; ss - PMHx: 12:48 COPD; ss - Immunization history:: Client reports receiving the 2nd dose of the Covid vaccine. - Social history:: Smoking status: Patient denies any tobacco usage or history of. Screenin:32 [facility] ED Fall Risk Assessment (Adult) Score/Fall Risk Level 0 - 2 = Low Risk hb Oriented to surroundings, Maintained a safe environment. Abuse screen: Denies threats or abuse. Denies injuries from another. Nutritional screening: No deficits noted. Tuberculosis screening: No symptoms or risk factors identified. Assessment: 14:32 General: Appears in no apparent distress. Behavior is calm, cooperative. Pain: Pain hb currently is 2 out of 10 on a pain scale. Neuro: Level of Consciousness is awake, alert, obeys commands. Cardiovascular: Patient's skin is warm and dry. Respiratory: Respiratory effort is even, unlabored, Respiratory pattern is regular, symmetrical. GI: No signs and/or symptoms were reported involving the gastrointestinal system. : No signs and/or symptoms were reported regarding the genitourinary system. EENT: No signs and/or symptoms were reported regarding the EENT system. Derm: Skin is pink, warm \T\ dry. Musculoskeletal: Reports low back and bilat leg pain x 1 week. Vital Signs: 12:47 BP 104 / 67; Pulse 57; Resp 16; Temp 98.3(TE); Pulse Ox 99% on R/A; Weight 102.06 kg; ss Height 6 ft. 1 in. ; Pain 2/10; 12:47 Body Mass Index 29.68 (102.06 kg, 185.42 cm) 12:47 Pain Scale: Adult ss ED Course: 12:32 Patient arrived in ED. mr 12:40 Shon Smith MD is Attending Physician. [facility] 12:48 Triage completed. ss 12:48 Arm band placed on right wrist. ss 13:12 CT Traumagram (Head C Spine CAP wo con) In Process Unspecified. EDMS 13:35 Comprehensive Metabolic Panel Sent. mb9 13:35 CBC with Diff Sent. mb9 13:36 Inserted saline lock: 22 gauge in right forearm, using aseptic technique. mb9 13:39 Pelvis XRAY In Process Unspecified. EDMS 14:03 Urinalysis w/ reflexes Sent. rs5 14:32 Patient has correct armband on for positive identification. hb 14:32 No provider procedures requiring assistance completed. hb 14:52 IV discontinued, intact, bleeding controlled, No redness/swelling at site. ld1 Administered Medications: 13:35 Drug: NS 0.9% IV 500 ml Route: IV; Rate: bolus; Site: right forearm; mb9 Medication: 13:37 VIS not applicable for this client. mb9 Outcome: 14:32 Discharge ordered by . [facility] 14:52 Discharged to home ambulatory, with family. ld1 14:52 Condition: stable 14:52 Discharge instructions given to patient, family, Instructed on discharge instructions, follow up and referral plans. medication usage, Demonstrated understanding of instructions, follow-up care, medications, Prescriptions given X 3. 14:52 Patient left the ED. ld1 Signatures: Dispatcher [employer] EDMS Shon Smith MD MD cha Rivera, Mary mr Rossana Tucker RN RN Raven Coulter RN RN Rivka Crespo RN RN ld1 Aliya Ocasio RN RN mb9 Edilberto Pnea rs5
--- NOTE | 2023-01-03 14:33 | EDPHYS ---
Physician Documentation [facility] Name: Lamin Damian Jr Age: 82 yrs Sex: Male : 1940 Arrival Date: 01/03/2023 Time: 12:30 Bed 7 Private MD: ED Physician Shon Smith HPI: 01/03 14:19 This 82 yrs old Male presents to ER via Ambulatory with complaints of Fall deanna Injury. 14:19 Details of fall: The patient fell from an upright position, while walking. Onset: The deanna symptoms/episode began/occurred today. Associated injuries: The patient sustained injury to the low back, pain. Severity of symptoms: At their worst the symptoms were mild, in the emergency department the symptoms are unchanged. The patient has experienced a previous episode, approximately 3 weeks ago. Historical: - Allergies: 12:48 Tetanus Vaccines \T\ Toxoid; ss - PMHx: 12:48 COPD; ss - Immunization history:: Client reports receiving the 2nd dose of the Covid vaccine. - Social history:: Smoking status: Patient denies any tobacco usage or history of. ROS: 14:20 Constitutional: Negative for fever, chills, and weight loss, Eyes: Negative for injury, deanna pain, redness, and discharge, ENT: Negative for injury, pain, and discharge, Neck: Negative for injury, pain, and swelling, Cardiovascular: Negative for chest pain, palpitations, and edema, Respiratory: Negative for shortness of breath, cough, wheezing, and pleuritic chest pain, Abdomen/GI: Negative for abdominal pain, nausea, vomiting, diarrhea, and constipation, : Negative for injury, bleeding, discharge, and swelling, Skin: Negative for injury, rash, and discoloration, Neuro: Negative for headache, weakness, numbness, tingling, and seizure, Psych: Negative for depression, anxiety, suicide ideation, homicidal ideation, and hallucinations, Allergy/Immunology: Negative for hives, rash, and allergies, Endocrine: Negative for neck swelling, polydipsia, polyuria, polyphagia, and marked weight changes, Hematologic/Lymphatic: Negative for swollen nodes, abnormal bleeding, and unusual bruising. 14:20 Back: Positive for decreased range of motion, pain at rest, pain with movement. 14:20 MS/extremity: Positive for decreased range of motion, pain, tenderness, of the right iliac crest and right hip. Exam: 14:20 Constitutional: This is a well developed, well nourished patient who is awake, alert, deanna and in no acute distress. Head/Face: Normocephalic, atraumatic. Eyes: Pupils equal round and reactive to light, extra-ocular motions intact. Lids and lashes normal. Conjunctiva and sclera are non-icteric and not injected. Cornea within normal limits. Periorbital areas with no swelling, redness, or edema. ENT: Nares patent. No nasal discharge, no septal abnormalities noted. Tympanic membranes are normal and external auditory canals are clear. Oropharynx with no redness, swelling, or masses, exudates, or evidence of obstruction, uvula midline. Mucous membranes moist. Neck: Trachea midline, no thyromegaly or masses palpated, and no cervical lymphadenopathy. Supple, full range of motion without nuchal rigidity, or vertebral point tenderness. No Meningismus. Chest/axilla: Normal chest wall appearance and motion. Nontender with no deformity. No lesions are appreciated. Cardiovascular: Regular rate and rhythm with a normal S1 and S2. No gallops, murmurs, or rubs. Normal PMI, no JVD. No pulse deficits. Respiratory: Lungs have equal breath sounds bilaterally, clear to auscultation and percussion. No rales, rhonchi or wheezes noted. No increased work of breathing, no retractions or nasal flaring. Abdomen/GI: Soft, non-tender, with normal bowel sounds. No distension or tympany. No guarding or rebound. No evidence of tenderness throughout. Male : Normal genitalia with no discharge or lesions. Neuro: Awake and alert, GCS 15, oriented to person, place, time, and situation. Cranial nerves II-XII grossly intact. Motor strength 5/5 in all extremities. Sensory grossly intact. Cerebellar exam normal. Normal gait. Psych: Awake, alert, with orientation to person, place and time. Behavior, mood, and affect are within normal limits. 14:20 Back: pain, that is mild, of the lumbar area, right mid back and right low back. 14:20 Musculoskeletal/extremity: Extremities: grossly normal except: noted in the right iliac crest and right hip: decreased ROM, pain, ROM: full active range of motion, full passive range of motion, Circulation is intact in all extremities. Sensation intact. Compartment Syndrome exam of affected extremity: is normal. Weight bearing: able to fully bear weight, without difficulty. Vital Signs: 12:47 BP 104 / 67; Pulse 57; Resp 16; Temp 98.3(TE); Pulse Ox 99% on R/A; Weight 102.06 kg; ss Height 6 ft. 1 in. ; Pain 2/10; 12:47 Body Mass Index 29.68 (102.06 kg, 185.42 cm) 12:47 Pain Scale: Adult ss MDM: 12:40 Patient medically screened. [facility] 14:25 Data reviewed: vital signs, nurses notes. Consideration of Admission/Observation deanna Escalation of care including admission/observation considered. I considered the following discharge prescriptions or medication management in the emergency department Medications were administered in the Emergency Department. See MAR. Test considered but Not performed: EKG: NO EKG. Care significantly affected by the following chronic conditions: Chronic Obstructive Pulmonary Disease, Obesity. 01/03 12:50 Order name: CBC with Diff; Complete Time: 14:15 [facility] 01/03 12:50 Order name: Comprehensive Metabolic Panel; Complete Time: 14:15 [facility] 01/03 12:50 Order name: Urinalysis w/ reflexes; Complete Time: 14:15 [facility] 01/03 12:50 Order name: CT Traumagram (Head C Spine CAP wo con); Complete Time: 14:15 [facility] 01/03 12:51 Order name: Pelvis XRAY; Complete Time: 14:15 [facility] 01/03 13:18 Order name: IV Start; Complete Time: 13:35 ld1 Administered Medications: 13:35 Drug: NS 0.9% IV 500 ml Route: IV; Rate: bolus; Site: right forearm; mb9 Disposition Summary: 01/03/23 14:32 Discharge Ordered Location: Home deanna Problem: new deanna Symptoms: have improved deanna Condition: Stable deanna Diagnosis - Fall on same level, unspecified deanna - Repeated falls deanna - Fracture of lumbar vertebra - SUBACUTE Lumbar fractures L3 AND L 4 deanna Followup: deanna - With: Private Physician - When: 2 - 3 days - Reason: Recheck today's complaints, Continuance of care, Re-evaluation by your physician Discharge Instructions: - Discharge Summary Sheet deanna - Fall Prevention in the Home, Adult deanna - Lumbar Spine Fracture deanna - Fall Prevention in the Home, Adult, [id number] deanna - Lumbar Sprain deanna - Lumbar Strain [facility] Forms: - Medication Reconciliation Form [facility] - Thank You Letter [facility] - Antibiotic Education [facility] - Prescription Opioid Use [facility] - [email or web address] [facility] Prescriptions: - acetaminophen-codeine 300-30 mg Oral tablet - take 2 tablet by ORAL route 4 times per day; 20 tablet; Refills: 0, Product [facility] Selection Permitted - Skelaxin 800 mg Oral Tablet - take 1 tablet by ORAL route every 8 hours As needed; 30 tablet; Refills: 0, [facility] Product Selection Permitted - Motrin IB 200 mg Oral Tablet - take 2 tablet by ORAL route every 6 hours As needed as needed with food; 30 [facility] tablet; Refills: 0, Product Selection Permitted Signatures: Dispatcher [employer] EDShon Parra MD MD cha Blanchard, Shelby, RN RN ss Rivka Crespo RN RN ld1 Aliya Ocasio RN RN mb9
[2023-01-03 15:15] VITALS: BP 104/67; TEMP 98.3; O2SAT 99
== END 2023-01-03 14:52 | disposition home or self-care (01) ==
LOC: ER 12:30
DX: S32.039A Unspecified fracture of third lumbar vertebra, initial encounter for closed fracture (principal); S32.049A Unspecified fracture of fourth lumbar vertebra, initial encounter for closed fracture; R29.6 Repeated falls; W18.30XA Fall on same level, unspecified, initial encounter; Z88.7 Allergy status to serum and vaccine
CPT/HCPCS: 85025; 81001; 36415; 80053; 70450; 71250; 72125; 72170; 99284; J7040

== ENCOUNTER 2023-10-12 10:03 | Emergency (ER) | payer OTHER ==
--- OUTSIDE RECORDS SUMMARY | 2023-10-12 10:05 | XMS REPORT | Continuity of Care Document ---
Author Name Unknown Address [address] [facility] [address] [place] [address] [facility] thconnect Address [address] [facility] [address] [place] [address] Care Team Providers Care Compacting Machine Operator/Tender Name Role Phone MARGARET Attending Clinician Unavailable Raju_P Attending Clinician Unavailable MARGARET Admitting Clinician Unavailable Raju_P Admitting Clinician Unavailable Encounters Start Date/Time End Date/Time Encounter Type Admission Type Attending Clinicians Care Facility Care Department Encounter ID Source 2022-01-31 00:00:00 2022-01-31 00:00:00 Outpatient ELIZABETH STEWART [facility] [id number] [facility] Program 2019-11-03 10:20:00 2019-11-03 10:20:00 Outpatient Raju_P [facility] [id number] [facility]
[2023-10-12] MEDS ORDERED: ONDANSETRON 4 MG/2 ML VIAL ONE ×4 (10:34→14:02)
[2023-10-12] MEDS ORDERED: PANTOPRAZOLE 40 MG INJ ONE (10:34)
[2023-10-12] MEDS ORDERED: VITAMIN K (ADULT) 10 MG/ML ONE (10:34)
[2023-10-12] MEDS ORDERED: NA CHLORIDE 0.9% 1,000 ML ONE (10:35)
[2023-10-12] MEDS ORDERED: NA CHLORIDE 0.9% 250 ML ONE (10:35)
[2023-10-12] MEDS ORDERED: OCTREOTIDE ACETATE 100 MCG/ML ONE (10:35)
[2023-10-12 10:37] LABS: Absolute Basophils 0.1 K/uL (0-0.5); Absolute Eosinophils 0.3 K/uL (0-0.5); Absolute Lymphocytes (CBC) 1.2 K/uL (0.7-4.9); Basophils % 0.6 % (0-1.3); Eosinophils % 2.2 % (0-4.4); Hematocrit 36.6 % (39.6-49.0); Hemoglobin 12.3 g/dL (13.6-17.9); Lymphocytes % 10.6 % (15.3-44.8); MCH 28.6 pg (27.0-35.0); MCHC 33.5 g/dL (32.0-36.0); MCV 85.4 fL (80-100); MPV 7.8 fL (7.6-11.3); Monocytes % 8.8 % (3.3-12.3); Neutrophils % 77.8 % (41.7-73.7); Nucleated Red Blood Cells % 0.1 % (0-0); Platelets 296 thou/uL (152-406); RBC Red Blood Cell Count 4.29 M/uL (4.33-5.43); Red Cell Distribution Width 14.9 % (12.1-15.2)
[2023-10-12 10:43] LABS: PT Prothrombin Time 11.7 SECONDS (9.5-12.5); Protime INR 1.07
[2023-10-12 10:56] LABS: Albumin 3.2 g/dL (3.4-5.0); Albumin/Globulin Ratio 0.8 (1.1-1.8); Anion Gap 9.8 mEq/L (5.0-15.0); Bilirubin Direct 0.3 mg/dL (0-0.2); Bilirubin Indirect, Calculated 0.6 mg/dL (0.2-0.8); Bilirubin Total 0.9 mg/dL (0.2-1.0); Globulin 4.2 g/dL (2.3-3.5); Magnesium 2.2 mg/dL (1.6-2.4); Potassium 3.8 mEq/L (3.5-5.1); Protein, Total 7.4 g/dL (6.4-8.2); Troponin High Sensitivity 7.4 pg/mL (<58.9)
--- NOTE | 2023-10-12 11:07 | RAD REPORT ---
EXAM DESCRIPTION: CTChest Abd Pelvis Wo Con - 10/12/2023 10:47 am CLINICAL HISTORY: Cough;Abdominal distention COMPARISON: No comparisons TECHNIQUE: CT of the chest, abdomen, and pelvis was performed. All CT scans are performed using dose optimization technique as appropriate and may include automated exposure control or mA/KV adjustment according to patient size. FINDINGS: Thorax: Chest Wall: No abnormal mass Lungs: Linear scarring versus subsegmental atelectasis in the lung bases. Pleura: No effusions or pneumothorax. Mary Ann/Mediastinum: No lymphadenopathy. Diffusely thickened esophagus containing some fluid. Question s urgical changes at the gastroesophageal junction. There is eccentric thickening at the distal esophag us and proximal stomach which is not well assessed. Aorta/Pulmonary Arteries: Unremarkable Heart: Normal size. Multi-vessel coronary disease. Abdomen/Pelvis: Liver: No acute abnormality or suspicious lesions. Biliary: No biliary ductal dilatation. Stomach: No significant focal abnormality. Duodenum: No significant focal abnormality. Pancreas: Pancreatic atrophy Spleen: No significant abnormality. Adrenal: 3.2 cm left adrenal myelolipoma which is benign. Kidney/ureter: No hydronephrosis. No renal calculi. Too small to characterize and/or benign appearing renal lesions are noted. Left lower pole renal cortical thinning. Retroperitoneum: No retroperitoneal adenopathy. Vascular: No aneurysm. Bowel: Large right inguinal hernia containing portions of bowel. No bowel obstruction. No appendiciti s. Diverticulosis without diverticulitis.. Peritoneum: No ascites or free air. Bladder: Bladder gas noted. This could be from instrumentation. Reproductive: Prostatomegaly which is mild. Bones: Lytic lesion in the right posterior sixth rib measuring 3.6 by 2.2 cm with erosion of the rib. Small lytic lesion in the right iliac bone measuring 19 millimeters is probably chronic. Remote L2 c ompression fracture. Mild compression deformities at several of the midthoracic vertebral bodies whic h are likely chronic. No acute fracture identified. Multilevel degenerative changes are present in th e spine. Other: n/a IMPRESSION: 1. Abnormal thickening of distal esophagus and proximal stomach. If the patient has had a prior fundoplication, this could explain some of the findings. If not, this is suspicious for an un derlying mass. Either way, endoscopy is suggested for further evaluation. Note that the proximal mide sophagus are also thickened though this is more circumferential and there are some fluid contents pre sent. 2. Right posterior sixth rib lytic lesion could represent metastatic disease or a primary lesion incl uding both benign (neurofibroma) and malignant etiologies. PET-CT could better assess if clinically i ndicated. 3. Bladder gas which is presumably from instrumentation however correlate with urinalysis to exclude infection.
--- NOTE | 2023-10-12 11:09 | RAD REPORT ---
EXAM DESCRIPTION: RAD - Chest Single View - 10/12/2023 11:01 am CLINICAL HISTORY: DYSPNEA COMPARISON: Chest Single View dated 07/26/2019; Chest Abd Pelvis Wo Con dated 10/12/2023 FINDINGS: Lines: None. Lungs: No evidence of edema or pneumonia. Pleural: No significant pleural effusions or pneumothorax. Cardiac: The heart size is within normal limits. Mediastinum: Within normal limits. Bones: Lesion associated with the right posterior sixth rib noted. Reference same-day CT. Other: None IMPRESSION: No acute cardiopulmonary disease.
--- NOTE | 2023-10-12 11:19 | ER ---
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 States he nj1 noticed dark stools 2 days ago. Does take plavix, added aspirin to his regimen due to left knee replacement done on . Coronavirus screen: Vaccine status: Patient reports receiving the 2nd dose of the covid vaccine. Ebola Screen: Patient denies travel to an Ebola-affected area in the 21 days before illness onset. Initial Sepsis Screen: Does the patient meet any 2 criteria? HR > 90 bpm. No. Patient's initial sepsis screen is negative. Does the patient have a suspected source of infection? No. Patient's initial sepsis screen is negative. Risk Assessment: Do you want to hurt yourself or someone else? Patient reports no desire to harm self or others. Onset of symptoms was October 12, 2023 at 06:00. 10:16 Method Of Arrival: Wheelchair nj1 10:16 Acuity: SMOOTH 3 nj1 10:22 Acuity: SMOOTH 2 iw Historical: - Allergies: 10:19 Tetanus Vaccines \T\ Toxoid; nj1 - PMHx: 10:19 COPD; nj1 - PSHx: 10:19 Operative procedure on knee (October 10, 2023); nj1 - Immunization history:: Client reports receiving the 2nd dose of the Covid vaccine. - Infectious Disease History:: Denies. - Social history:: Smoking status: Patient denies any tobacco usage or history of. Screenin:23 [facility] ED Fall Risk Assessment (Adult) History of falling in the last 3 months, iw including since admission No falls in past 3 months (0 pts) Confusion or Disorientation No (0 pts) Intoxicated or Sedated No (0 pts) Impaired Gait Yes (1 pt) Mobility Assist Device Used Yes (1 pt) Altered Elimination No (0 pt) Score/Fall Risk Level 0 - 2 = Low Risk. Nutritional screening: No deficits noted. Tuberculosis screening: No symptoms or risk factors identified. 10:30 Abuse screen: Denies threats or abuse. Denies injuries from another. iw Assessment: 10:22 GI: Pt is actively vomiting coffee ground emesis. iw 10:25 General: Appears uncomfortable, ill, Behavior is cooperative. Pain: Complains of pain iw in abdomen. Neuro: Level of Consciousness is awake, alert, obeys commands, Oriented to person, place, time, situation, Moves all extremities. Musculoskeletal: Range of motion: limited in right knee. 11:00 Reassessment: Patient states feeling better. Patient states symptoms have improved. iw 11:50 Reassessment: pt retching , clear liquid noted in emesis bag. iw 12:50 Reassessment: Patient appears in no apparent distress at this time. Patient and/or iw family updated on plan of care and expected duration. Pain level reassessed. Patient is alert, oriented x 3, equal unlabored respirations, skin warm/dry/pink. 14:20 Reassessment: pt dry heaving , pt reports feeling more bloated and having more abd pain iw Patient denies pain at this time. Vital Signs: 10:16 BP 94 / 76; Pulse 106; Resp 20; Temp 97.2(TE); Pulse Ox 90% on R/A; Weight 95.25 kg; nj1 Height 6 ft. 0 in. ; 11:23 BP 134 / 85; Pulse 98; Resp 19; Pulse Ox 97% on R/A; iw 14:50 BP 155 / 77; Pulse 94; Resp 19; Pulse Ox 100% on 2 lpm NC; iw 10:16 Body Mass Index 28.48 (95.25 kg, 182.88 cm) nj1 ED Course: 10:07 Patient arrived in ED. mr 10:16 Shon Smith MD is Attending Physician. deanna 10:19 Triage completed. nj1 10:20 Arm band placed on. nj1 10:22 Kaylee Mckinley, DESEAN is Primary Nurse. iw 10:22 Client placed on continuous cardiac and pulse oximetry monitoring. NIBP monitoring hb applied. remote broadcast engineer on. Pulse ox on. NIBP on. 10:23 Inserted saline lock: 20 gauge in right antecubital area, using aseptic technique. iw Blood collected. 10:40 T\T\S collected, blood band applied to patient. iw 10:48 CT Chest Abdomen Pelvis W/O Contrast In Process Unspecified. EDMS 11:00 Inserted saline lock: 22 gauge in left wrist, using aseptic technique. iw 11:03 XRAY Chest (1 view) In Process Unspecified. EDMS 11:48 initiated transfer to [facility], faxed chart to [place] ER as requested by [place] transfer [facility] [facility]. 14:03 pt accepted in transfer to [facility] by Dr lipscomb, admin approval given by Monique Velarde. 15:00 No provider procedures requiring assistance completed. Patient transferred, IV remains iw in place. Administered Medications: 10:39 Drug: Pantoprazole IVP 80 mg IVP once Route: IVP; Site: right antecubital; iw 12:00 Follow up: Response: No adverse reaction iw 10:39 Drug: Ondansetron IVP 4 mg IVP once; over 2 minutes Route: IVP; Site: right antecubital;iw 11:00 Follow up: Response: No adverse reaction iw 10:45 Drug: NS 0.9% IV 1000 ml IV at 1 bolus Per protocol; 1000 mL bolus Route: IV; Rate: 1 iw bolus; Site: right antecubital; 12:00 Follow up: IV Status: Completed infusion iw 11:05 Drug: Phytonadione Sub-Q 10 mg Sub-Q once Route: Sub-Q; Site: right upper arm; iw 12:30 Follow up: Response: No adverse reaction iw 11:10 Drug: Pantoprazole IV 8 mg/hr IV at 25 ml/hr continuous; (Standard dilution is 80 mg in iw 250 mL NS) Route: IV; Rate: 25 ml/hr; Site: right antecubital; 15:20 Follow up: IV Status: Infusion continued upon transfer iw 11:29 Drug: SandoSTATIN IV 50 mcg IV at calculated rate once Route: IV; Rate: calculated iw rate; Site: left wrist; 11:40 Follow up: IV Status: Completed infusion iw 12:02 Drug: Rocephin IV 1 grams IV at per protocol once; Given slow IV push per pharmacy iw instructions Route: IV; Rate: per protocol; Site: left wrist; 12:20 Follow up: IV Status: Completed infusion iw 12:02 Drug: Ondansetron IVP 4 mg IVP once; over 2 minutes Route: IVP; Site: left wrist; iw 13:00 Follow up: Response: No adverse reaction iw 12:29 Drug: SandoSTATIN IV 25 mcg/h IV at calculated rate once Route: IV; Rate: calculated ss rate; Site: left hand; 15:00 Follow up: IV Status: Infusion continued upon transfer iw 14:10 Drug: fentaNYL (PF) IVP 25 mcg IVP once Route: IVP; Site: right antecubital; iw 14:50 Follow up: Response: No adverse reaction; Pain is decreased iw 14:10 Drug: Ondansetron IVP 4 mg IVP once; over 2 minutes Route: IVP; Site: right antecubital;iw 14:30 Follow up: Response: No adverse reaction iw Medication: 10:30 VIS not applicable for this client. iw Outcome: 11:18 ER care complete, transfer ordered by MD. huerta 15:20 Transferred by ground EMS [facility] . Transfer form completed. X-rays sent w/ patient. iw 15:20 Condition: stable 15:20 Discharge instructions given to patient, family, Instructed on the need for transfer, Demonstrated understanding of 15:33 Patient left the ED. iw Signatures: Dispatcher [employer] EDMS Ly Blackburn Corey, MD MD cha Rivera, Mary, [facility] mr Kaylee Mckinley RN RN Rossana Tucker RN RN ss Baxter, Heather, RN RN hb Jaco, Norma, RN RN nj1
--- NOTE | 2023-10-12 11:19 | EDPHYS ---
Physician Documentation [facility] Name: Lamin Damian Jr Age: 83 yrs Sex: Male : 1940 Arrival Date: 10/12/2023 Time: 10:03 Bed 6 Private MD: ED Physician Shon Smith HPI: 10/11 11:08 This 83 yrs old Male presents to ER via Wheelchair with complaints of deanna Vomiting Blood. 11:08 The patient presents to the emergency department vomiting blood, a moderate amount, deanna bright red, coffee grounds in nature. Onset: The symptoms/episode began/occurred just prior to arrival, this morning. Abdominal pain: described as crampy. Modifying factors: The symptoms are alleviated by nothing, the symptoms are aggravated by nothing. Associated signs and symptoms: Pertinent positives: vomiting. Severity of symptoms: At their worst the symptoms were moderate in the emergency department the symptoms are unchanged. The patient has not experienced similar symptoms in the past. Historical: - Allergies: 10:19 Tetanus Vaccines \T\ Toxoid; nj1 - PMHx: 10:19 COPD; nj1 - PSHx: 10:19 Operative procedure on knee (October 10, 2023); nj1 - Immunization history:: Client reports receiving the 2nd dose of the Covid vaccine. - Infectious Disease History:: Denies. - Social history:: Smoking status: Patient denies any tobacco usage or history of. ROS: 11:10 Constitutional: Negative for fever, chills, and weight loss, Eyes: Negative for injury, deanna pain, redness, and discharge, ENT: Negative for injury, pain, and discharge, Neck: Negative for injury, pain, and swelling, Cardiovascular: Negative for chest pain, palpitations, and edema, Back: Negative for injury and pain, : Negative for injury, bleeding, discharge, and swelling, Skin: Negative for injury, rash, and discoloration, Neuro: Negative for headache, weakness, numbness, tingling, and seizure, Psych: Negative for depression, anxiety, suicide ideation, homicidal ideation, and hallucinations, Allergy/Immunology: Negative for hives, rash, and allergies, Endocrine: Negative for neck swelling, polydipsia, polyuria, polyphagia, and marked weight changes, Hematologic/Lymphatic: Negative for swollen nodes, abnormal bleeding, and unusual bruising, 11:10 Respiratory: Positive for cough, shortness of breath, at rest. 11:10 Abdomen/GI: Positive for abdominal pain, nausea and vomiting, nausea, vomiting, abdominal cramps, hematemesis, black/tarry stool, Exam: 11:10 Constitutional: This is a well developed, well nourished patient who is awake, alert, deanna and in no acute distress. Head/Face: Normocephalic, atraumatic. Eyes: Pupils equal round and reactive to light, extra-ocular motions intact. Lids and lashes normal. Conjunctiva and sclera are non-icteric and not injected. Cornea within normal limits. Periorbital areas with no swelling, redness, or edema. ENT: Nares patent. No nasal discharge, no septal abnormalities noted. Tympanic membranes are normal and external auditory canals are clear. Oropharynx with no redness, swelling, or masses, exudates, or evidence of obstruction, uvula midline. Mucous membranes moist. Neck: Trachea midline, no thyromegaly or masses palpated, and no cervical lymphadenopathy. Supple, full range of motion without nuchal rigidity, or vertebral point tenderness. No Meningismus. Chest/axilla: Normal chest wall appearance and motion. Nontender with no deformity. No lesions are appreciated. Abdomen/GI: Soft, non-tender, with normal bowel sounds. No distension or tympany. No guarding or rebound. No evidence of tenderness throughout. Back: No spinal tenderness. No costovertebral tenderness. Full range of motion. Male : Normal genitalia with no discharge or lesions. Skin: Warm, dry with normal turgor. Normal color with no rashes, no lesions, and no evidence of cellulitis. MS/ Extremity: Pulses equal, no cyanosis. Neurovascular intact. Full, normal range of motion. Neuro: Awake and alert, GCS 15, oriented to person, place, time, and situation. Cranial nerves II-XII grossly intact. Motor strength 5/5 in all extremities. Sensory grossly intact. Cerebellar exam normal. Normal gait. Psych: Awake, alert, with orientation to person, place and time. Behavior, mood, and affect are within normal limits. 11:10 Cardiovascular: Rate: tachycardic, actual rate is 106 bpm, Rhythm: regular, Pulses: Pulses are 4+ in bilateral radial, brachial, femoral, popliteal, posterior tibial and and dorsalis pedis arteries.. Heart sounds: normal, normal S1and S2, no S3 or S4, no murmur, no rub, no gallop, Edema: is not appreciated, JVD: is not appreciated, 11:10 ECG was reviewed by the Attending Physician. 11:10 Abdomen/GI: Inspection: abdomen appears normal, Bowel sounds: normal, Palpation: abdomen is soft and non-tender, Rectal exam: BLACK STOOLS. Liver: no appreciated palpable abnormalities, Hernia: not appreciated, 11:10 Musculoskeletal/extremity: ROM: limited active range of motion, limited passive range of motion, limited active range of motion due to pain, limited passive range of motion due to pain, in the left leg, Circulation is intact in all extremities. Sensation intact. Compartment Syndrome exam of affected extremity: is normal. Weight bearing: can bear weight with assistance only, uses walker, 11:58 ECG was reviewed by the Attending Physician. [facility] Vital Signs: 10:16 BP 94 / 76; Pulse 106; Resp 20; Temp 97.2(TE); Pulse Ox 90% on R/A; Weight 95.25 kg; nj1 Height 6 ft. 0 in. ; 11:23 BP 134 / 85; Pulse 98; Resp 19; Pulse Ox 97% on R/A; iw 14:50 BP 155 / 77; Pulse 94; Resp 19; Pulse Ox 100% on 2 lpm NC; iw 10:16 Body Mass Index 28.48 (95.25 kg, 182.88 cm) nj1 MDM: 10:16 Patient medically screened. deanna 11:14 Differential diagnosis: gastritis, diverticulitis, hemorrhoids, hemorrhagic shock, deanna varices. Data reviewed: vital signs, nurses notes, lab test result(s), EKG, radiologic studies, CT scan, plain films. Consideration of Admission/Observation Escalation of care including admission/observation considered. I considered the following discharge prescriptions or medication management in the emergency department Medications were administered in the Emergency Department. See MAR. Independent interpretation of the following test(s) in the Emergency Department EKG: See my EKG interpretation above. Test considered but Not performed: Ultrasound NO ABD USG. Historians other than the Patient: Spouse/Significant Other: WELL INFORMED. Care significantly affected by the following chronic conditions: Chronic Obstructive Pulmonary Disease. Counseling: I had a detailed discussion with the patient and/or guardian regarding the historical points, exam findings, and any diagnostic results supporting the discharge/admit diagnosis, lab results, radiology results, the need to transfer to another facility, for higher level of care, [facility] does not immediately have the required specialist. 10/11 10:25 Order name: Basic Metabolic Panel; Complete Time: 11:19 [facility] 10/11 10:25 Order name: CBC with Diff; Complete Time: 11:19 [facility] 10/11 10:25 Order name: LFT's; Complete Time: 11:19 [facility] 10/11 10:25 Order name: Magnesium; Complete Time: 11:19 deanna 10/11 10:25 Order name: NT PRO-BNP; Complete Time: 11:19 [facility] 10/11 10:25 Order name: PT-INR; Complete Time: 11:19 [facility] 10/11 10:25 Order name: Troponin HS; Complete Time: 11:19 [facility] 10/11 10:25 Order name: Lipase; Complete Time: 11:19 [facility] 10/11 10:25 Order name: Type And Screen [facility] 10/11 10:57 Order name: Bb Add On bd 10/11 11:45 Order name: ABO/RH no charge; Complete Time: 13:17 EDMS 10/11 10:25 Order name: XRAY Chest (1 view); Complete Time: 11:19 [facility] 10/11 10:25 Order name: CT Chest Abdomen Pelvis W/O Contrast; Complete Time: 11:19 [facility] 10/11 10:25 Order name: EKG; Complete Time: 10:26 [facility] 10/11 10:25 Order name: Cardiac monitoring; Complete Time: 11:13 [facility] 10/11 10:25 Order name: EKG - Nurse/Tech; Complete Time: 12:14 [facility] 10/11 10:25 Order name: IV Saline Lock; Complete Time: 10:39 deanna 10/11 10:25 Order name: Labs collected and sent; Complete Time: 10:39 [facility] 10/11 10:25 Order name: O2 Per Protocol; Complete Time: 10:39 [facility] 10/11 10:25 Order name: O2 Sat Monitoring; Complete Time: 10:39 [facility] 10/11 10:25 Order name: IV - Large Bore; Complete Time: 10:40 [facility] 10/11 10:57 Order name: Labs - recollect needed: collect abo/rh no charge; Complete Time: 11:24 bd EC:58 Rate is 90 beats/min. Rhythm is regular. QRS [place] is Normal. [place] interval is normal. QRS deanna interval is normal. QT interval is normal. No Q waves. T waves are Normal. No ST changes noted. Clinical impression: Normal ECG and No evidence of ischemia. Interpreted by me. Reviewed by me. Administered Medications: 10:39 Drug: Pantoprazole IVP 80 mg IVP once Route: IVP; Site: right antecubital; iw 12:00 Follow up: Response: No adverse reaction iw 10:39 Drug: Ondansetron IVP 4 mg IVP once; over 2 minutes Route: IVP; Site: right antecubital;iw 11:00 Follow up: Response: No adverse reaction iw 10:45 Drug: NS 0.9% IV 1000 ml IV at 1 bolus Per protocol; 1000 mL bolus Route: IV; Rate: 1 iw bolus; Site: right antecubital; 12:00 Follow up: IV Status: Completed infusion iw 11:05 Drug: Phytonadione Sub-Q 10 mg Sub-Q once Route: Sub-Q; Site: right upper arm; iw 12:30 Follow up: Response: No adverse reaction iw 11:10 Drug: Pantoprazole IV 8 mg/hr IV at 25 ml/hr continuous; (Standard dilution is 80 mg in iw 250 mL NS) Route: IV; Rate: 25 ml/hr; Site: right antecubital; 15:20 Follow up: IV Status: Infusion continued upon transfer iw 11:29 Drug: SandoSTATIN IV 50 mcg IV at calculated rate once Route: IV; Rate: calculated iw rate; Site: left wrist; 11:40 Follow up: IV Status: Completed infusion iw 12:02 Drug: Rocephin IV 1 grams IV at per protocol once; Given slow IV push per pharmacy iw instructions Route: IV; Rate: per protocol; Site: left wrist; 12:20 Follow up: IV Status: Completed infusion iw 12:02 Drug: Ondansetron IVP 4 mg IVP once; over 2 minutes Route: IVP; Site: left wrist; iw 13:00 Follow up: Response: No adverse reaction iw 12:29 Drug: SandoSTATIN IV 25 mcg/h IV at calculated rate once Route: IV; Rate: calculated ss rate; Site: left hand; 15:00 Follow up: IV Status: Infusion continued upon transfer iw 14:10 Drug: fentaNYL (PF) IVP 25 mcg IVP once Route: IVP; Site: right antecubital; iw 14:50 Follow up: Response: No adverse reaction; Pain is decreased iw 14:10 Drug: Ondansetron IVP 4 mg IVP once; over 2 minutes Route: IVP; Site: right antecubital;iw 14:30 Follow up: Response: No adverse reaction iw Disposition Summary: 10/12/23 11:18 Transfer Ordered Notes: Transfer Location: Other Acute Care Facility deanna Reason: Higher level of care deanna Condition: Fair deanna Problem: new deanna Symptoms: have improved deanna Accepting Physician: TO [place](10/12/23 15:33) Diagnosis - Nausea with vomiting, unspecified deanna - GI Bleed/ Gastrointestinal hemorrhage, unspecified - UPPER deanna - COPD/ Chronic obstructive pulmonary disease, unspecified deanna - Hypoxemia deanna - 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
[2023-10-12] MEDS ORDERED: CEFTRIAXONE 1000 MG/VIAL ONE (11:40)
[2023-10-12] MEDS ORDERED: OCTREOTIDE 500 MCG in NA CHLORIDE 0.9% 500 ML IV SCH (12:00)
[2023-10-12] MEDS ORDERED: FENTANYL CITR 100 MCG/2 ML ONE (14:03)
[2023-10-12 20:57] VITALS: BP 134/85; TEMP 97.2; O2SAT 97
--- NOTE | 2023-10-13 12:43 | EKG ---
Test Date: 2023-10-12 Test Time: 11:52:57 Powerbuilder: BETO MEASUREMENT RESULTS: Intervals: Rate: 90 HI: 160 QRSD: 88 QT: 344 QTc: 420 [place]: P: 68 HI: 160 QRS: 14 T: 38 INTERPRETIVE STATEMENTS: Sinus rhythm with premature atrial complexes Otherwise normal ECG Compared to ECG 07/26/2019 15:49:34 Atrial premature complex(es) now present Myocardial infarct finding no longer present Electronically Signed On 10-13-23 12:40:37 CDT by Lacho Hatch
== END 2023-10-12 15:33 ==
LOC: ER 10:03
DX: K92.2 Gastrointestinal hemorrhage, unspecified (principal); K20.90 Esophagitis, unspecified without bleeding; J44.9 Chronic obstructive pulmonary disease, unspecified; R09.02 Hypoxemia; Z79.01 Long term (current) use of anticoagulants; Z79.82 Long term (current) use of aspirin; M25.562 Pain in left knee; Z96.652 Presence of left artificial knee joint; Z88.7 Allergy status to serum and vaccine
CPT/HCPCS: 93005; 85025; 80048; 36415; 86900; 83735; 86850; 85610; 86901; 80076; 86920 ×2; 84484; 83690; 83880; 71250; 74176; 71045; 96372; 99285; J2354 ×2; J3430; C9113; J3010; J2405 ×4; J7050; J7040; J7030; J0696